=== PATIENT | male | born 1950 | race Caucasian/White ===

== ENCOUNTER → 2017-08-19 | Outpatient (CLI) | payer BC, MEDICARE ==
[2017-08-19 09:55] LABS: Cholesterol 140 mg/dL (<200); HDL Cholesterol 46 mg/dL (40-60)
== END | disposition home or self-care (01) ==
LOC: LABWHC1 08:20
PROVIDERS: ATTEND Family Medicine
DX: R05 Cough (principal); E78.00 Pure hypercholesterolemia, unspecified
CPT/HCPCS: 36415; 80061

== ENCOUNTER → 2017-08-19 | Outpatient (CLI) | payer BC, MEDICARE ==
[2017-08-19 08:40] LABS: EKG EKG PERFORMED
[2017-08-19 09:43] LABS: CH 30.5; CHCM 31.8; HCT 47.4 % (39.0-53.0); HDW 2.35; HGB 15.2 gm/dL (13.0-17.5); MCH 30.9 pg (25.0-35.0); MCV 96.4 fL (80.0-100.0); Mean Platelet Volume 6.9; RBC 4.92 m/uL (4.30-5.90); RDW 13.5 % (11.5-15.5); WBC 5.9 k/uL (3.8-10.6)
[2017-08-19 09:45] LABS: INR 1.1 (<1.2); Partial Thromboplastin Time 29.1 sec (22.0-30.0); Prothrombin Time 10.9 sec (9.0-12.0)
[2017-08-19 09:48] LABS: Appearance,Urine Clear (Clear); Bilirubin,Urine Negative (Negative); Glucose,Urine (UA) Negative (Negative); Ketones,Urine Negative (Negative); Leukocyte Esterase,Urine Negative (Negative); Nitrite,Urine Negative (Negative); PH, Urine 5.5 (5.0-8.0); Protein,Urine Negative (Negative); Specific Gravity,Urine 1.019 (1.001-1.035); UA Billing (MACRO vs. MICRO) CHEM; Urobilinogen,Urine <2.0 mg/dL (<2.0)
[2017-08-19 10:20] LABS: ALT 35 U/L (21-72); AST 26 U/L (17-59); Alkaline Phosphatase 62 U/L (38-126); Anion Gap 12 mmol/L; Blood Urea Nitrogen 17 mg/dL (9-20); Calcium 9.2 mg/dL (8.4-10.2); Carbon Dioxide 23 mmol/L (22-30); Chloride 107 mmol/L (98-107); Glucose 87 mg/dL (74-99); Non-African American GFR(MDRD) >60 (>60 ml/min/1.73 sqM); Potassium 4.4 mmol/L (3.5-5.1); Sodium 142 mmol/L (137-145); Total Bilirubin 0.5 mg/dL (0.2-1.3); Total Protein 7.4 g/dL (6.3-8.2)
== END | disposition home or self-care (01) ==
LOC: LABPAT 08:16
PROVIDERS: ATTEND Orthopaedic Surgery
DX: Z01.810 Encounter for preprocedural cardiovascular examination (principal); Z01.812 Encounter for preprocedural laboratory examination; M16.12 Unilateral primary osteoarthritis, left hip
CPT/HCPCS: 80053; 81003; 85027; 85610; 85730; 87070; 93005

== ENCOUNTER 2017-08-29 06:44 | Inpatient (IN) | payer BC, MEDICARE ==
[2017-08-22 14:13] VITALS: BMI 23.8
[~2017-08-29 06:44] MED LIST: ACETAMINOPHEN TAB 500 MG TAB PO ONE; DEXAMETHASONE SOD PHOSPHATE 10 MG/ML 1 ML VIAL IV ONE; MELOXICAM 7.5 MG TAB PO ONE; MIDAZOLAM 2 MG/2 ML VIAL IV PRN; SCOPOLAMINE 1.5MG/72HR PATCH TRANSDERM ONE; TRANEXAMIC ACID 1,000 MG in SODIUM CHLORIDE 0.9% 100 ML IVPB ONE; VANCOMYCIN 1,250 MG in SODIUM CHLORIDE 0.9% 250 ML IVPB ONE; ceFAZolin 2 GM in SODIUM CHLORIDE 0.9% 100 ML IVPB ONE
[2017-08-29] MEDS ORDERED: LACTATED RINGERS 1,000 ML IV ONE ×3 (07:07→11:12)
[2017-08-29] MEDS ORDERED: LIDOCAINE 1% 20 ML VIAL (10MG/ML) FOR IV START INTRADERMA ONE (07:08)
[2017-08-29] MEDS: ONDANSETRON 4 MG/2 ML VIAL IVP ONE ×2 (07:45→12:24)
[2017-08-29 07:54] LABS: Basophils % (A) 1 %; CH 30.8; CHCM 32.5; Eosinophils # (A) 0.1 k/uL (0-0.7); Eosinophils % (A) 2 %; HCT 45.1 % (39.0-53.0); HDW 2.34; HGB 14.9 gm/dL (13.0-17.5); Luc # (Auto) 0.16; Luc % (Auto) 3; Lymphocytes # (A) 2.5 k/uL (1.0-4.8); Lymphocytes % (A) 43 %; MCH 31.3 pg (25.0-35.0); MCHC 32.9 g/dL (31.0-37.0); MCV 95.2 fL (80.0-100.0); Mean Platelet Volume 6.3; Monocytes # (A) 0.4 k/uL (0-1.0); Monocytes % (A) 6 %; Neutrophils # (A) 2.8 k/uL (1.3-7.7); Neutrophils % (A) 46 %; RBC 4.74 m/uL (4.30-5.90); RDW 13.5 % (11.5-15.5); WBC (Perox) 5.94
[2017-08-29 08:01] LABS: Anion Gap 11 mmol/L; Blood Urea Nitrogen 13 mg/dL (9-20); Calcium 9.3 mg/dL (8.4-10.2); Carbon Dioxide 24 mmol/L (22-30); Chloride 106 mmol/L (98-107); Glucose 96 mg/dL (74-99); Non-African American GFR(MDRD) >60 (>60 ml/min/1.73 sqM); Potassium 4.2 mmol/L (3.5-5.1); Sodium 141 mmol/L (137-145)
[2017-08-29] MEDS ORDERED: HYDROmorphone 0.5 MG/0.5 ML SYRINGE IVP PRN ×3 (09:30)
[2017-08-29] MEDS ORDERED: hydrOXYzine PAMOATE 25 MG CAP PO PRN (09:30)
[2017-08-29] MEDS ORDERED: HYDROcodone/APAP 7.5-325MG 1 EACH TAB PO PRN (09:30)
[2017-08-29] MEDS ORDERED: NALOXONE 0.4 MG/ML 1 ML VIAL IV PRN (09:30)
[2017-08-29] MEDS ORDERED: MAGNESIUM HYDROXIDE 2,400 MG/10 ML CUP PO PRN (09:30)
[2017-08-29] MEDS ORDERED: DIAZEPAM 5 MG TAB PO PRN (09:30)
[2017-08-29] MEDS ORDERED: ONDANSETRON 4 MG/2 ML VIAL IVP PRN (09:30)
[2017-08-29] MEDS ORDERED: TRANEXAMIC ACID 1,000 MG/10 ML VIAL ONE (09:56)
[2017-08-29] MEDS ORDERED: fentaNYL (PF) 50 MCG/ML 2 ML AMP ONE (09:56)
[2017-08-29] MEDS ORDERED: MIDAZOLAM 2 MG/2 ML VIAL ONE (09:56)
[2017-08-29] MEDS ORDERED: SODIUM CHLORIDE 0.9% 100 ML BAG ONE (09:56)
[2017-08-29] MEDS ORDERED: PROPOFOL 10 MG/ML 20 ML VIAL IV ONE (09:56)
[2017-08-29] MEDS ORDERED: ceFAZolin 3,000 MG in SODIUM CHLORIDE 0.9% IRRIGATIO 3,000 ML IRRIGATION ONE (10:00)
[2017-08-29] MEDS: ROPIVACAINE 246.25 MG, EPINEPHrine 0.5 MG, KETOROLAC 30 MG, cloNIDine HCL/PF 80 MCG, WA... MISCELLANE ONE ×10 (10:27→11:30)
--- NOTE | 2017-08-29 11:41 | P.OP ---
Date of Procedure: 08/29/17 Preoperative Diagnosis: Severe osteoarthritis left hip Postoperative Diagnosis: Severe osteoarthritis left hip Procedure(s) Performed: Left total hip arthroplasty with a direct anterior approach Implants: Ibarra and nephew Polarstem size 6 lateral Ibarra & Nephew R3, 3 hole acetabular shell, 54 mm Ibarra & Nephew reflection 6.5 mm cancellus screw, 20 mm, 25 mm Ibarra & Nephew R3, XLPE 20 acetabular liner Ibarra & Nephew Oxinium femoral head 36 m, +8 All components were press-fit. The articulation is ceramic on polyethylene. Anesthesia: spinal Surgeon: Jermaine Polanco Industrial Nurse #1: Janice Alvarado Estimated Blood Loss (ml): 600 (263 mL returned with Cell Saver) Pathology: other (Femoral head) Condition: stable Disposition: PACU Indications for Procedure: After failure of conservative treatment we discussed the surgical and nonsurgical treatment options at length. Patient wishes to proceed with a total hip arthroplasty with a direct anterior approach. Complications specific to this procedure were discussed at length, including but not limited to infection, leg length discrepancy, dislocation, and nerve injury. Patient is aware of all these complications and informed consent was obtained Operative Findings: The operative findings are consistent with severe osteoarthritis of the left hip Description of Procedure: Patient was seen and evaluated in the preoperative area, consent was reviewed, and the surgical site was marked with a skin marker. Patient was then brought to the operating room and given prophylactic antibiotics intravenously. 1 g of Tranexamic acid was also given. A spinal anesthetic was administered by the anesthesia department. The patient was then placed on the [place] table with the bony prominences well-padded. The hip area was then prepped and draped in usual sterile fashion. A universal timeout was then performed, which confirmed the patient's name, surgical site, ALLERGIES, and procedure being performed. Next the incision site was located at 1 cm distal and 1 cm lateral to the anterior superior iliac spine. The skin and subcutaneous tissues were sharply incised. Incision was carefully dissected down to the fascia overlying the tensor fascia carol muscle. This fascia was then incised in line with the incision. Next, using blunt finger dissection, the tensor fascia carol muscle was dissected off its investing fascia. The muscle was then carefully retracted laterally with a cobra retractor over the lateral neck of the femur. Next, the circumflex vessels were identified and cauterized using the AquaMantis device. The anterior hip capsule was then exposed. The capsule was then opened and an inverted T fashion. Cobra retractors were then placed intracapsularly. The proximal femur was then visualized. The femoral neck was then osteotomized appropriate level above the lesser trochanter. Small amount of traction was placed with the [place] table. A small wedge of bone was then removed from the remaining femoral head. Next, using a corkscrew femoral head was easily removed from the acetabulum. On gross visual inspection, the femoral head had complete loss of articular cartilage in multiple periarticular osteophytes. Attention was then turned to the acetabulum. the acetabulum was exposed and any remaining labrum was excised. Sequential reaming of the acetabulum was performed using fluoroscopic guidance. When the appropriate size was reached, a trial was then placed. The position and fit of the trial was checked with fluoroscopy. The trial was then removed. Then, using fluoroscopic guidance, the final implant was impacted at 20 of anteversion and 40 of abduction, and fully seated in the acetabulum. 2 screws were then placed in the acetabulum. Again fluoroscopy was used to check position of the screws. Next, the liner was then impacted, with a 20 elevated liner located in the anterior superior quadrant. Component locking was confirmed. Attention was then directed to the femur. With the aid of the [place] table, the femur was externally rotated to approximately 130, extended, and abducted under the opposite leg. A side hook was then placed under the proximal femur, and the side hook elevator was used to elevate the proximal femur. Retractors were then placed. A capsular release was performed, as well as a release of the conjoined tendon, which afforded excellent visualization of the proximal femur. Next, a box osteotome was used to lateralize the proximal femur. A harness racing handicapper was then used to locate the femoral canal. Sequential broaching was then performed with appropriate size which afforded excellent fixation in the proximal femur. A trial was then placed with appropriate head and neck, and the hip was gently reduced with the aid of the [place] table. Fluoroscopy was then used to check position of the components, as well as to ensure equal leg lengths. The hip was then gently dislocated and the trials were then removed. Final implants were then impacted and the hip was again reduced. Final fluoroscopic x-rays confirmed that the components were in anatomic position, as well as equal leg lengths. The hip was also taken through range of motion, and found to be stable. The hip was then copiously irrigated with antibiotic solution with pulsatile lavage. The hip was then irrigated with Irrisept solution. The soft tissues were then injected with a ropivacaine solution, which consisted of 246.25 mg of ropivacaine, 0.5 mg of epinephrine, 30 mg of Toradol, 80 g of clonidine, and 48.45 mL of sterile water, for a total of 100 mL of fluid injected. A second dose of 1 g of Tranexamic acid was also given. the fascia was then closed with 2-0 strata fix suture. The subcutaneous tissue was closed with 3-0 Vicryl. The subcuticular tissue was closed with 3-0 strata fix suture. The skin was then closed with Dermabond tape. The patient was then transferred to the recovery room in stable condition. The respiratory assistant KIMBERLY Anderson was required due to the complexity of surgery, and the need for skilled assistant professor in family studies for positioning, draping, exposure, retraction, and closure of the wound.
[2017-08-29 12:12] VITALS: RESP 16
[2017-08-29] MEDS: HYDROmorphone 0.5 MG/0.5 ML SYRINGE IVP PRN ×4 (12:18→12:41)
[2017-08-29] MEDS ORDERED: KETOROLAC 30 MG/ML 1 ML VIAL IVP ONE (12:24)
[2017-08-29] MEDS: MEPERIDINE 50 MG/ML SYRINGE IVP ONE ×2 (12:50→12:52)
--- NOTE | 2017-08-29 12:56 | FL ---
EXAMINATION TYPE: FL guidance operating room, XR Hip Limited LT DATE OF EXAM: 08/29/2017 CLINICAL HISTORY: Left hip replacement surgery. TECHNIQUE: Fluoroscopy. Limited intraoperative views left hip. COMPARISON: None. FINDINGS: Fluoroscopic guidance was provided during total left hip replacement procedure performed kiel Polanco. A total of 56 seconds of fluoroscopic time was utilized during the procedure and 2 s pot intraoperative images are acquired. Images acquired show metallic hardware from total left hip arthroplasty and appears satisfactory in p osition on single frontal projection. IMPRESSION: As Above.
--- NOTE | 2017-08-29 13:01 | XR ---
Please see fluoroscopy report [id number] for complete details.
[2017-08-29] MEDS: LACTATED RINGERS 1,000 ML IV SCH (13:05)
[2017-08-29] MEDS: HYDROcodone/APAP 7.5-325MG 1 EACH TAB PO PRN ×2 (13:51→19:47)
[2017-08-29] MEDS: SODIUM CHLORIDE 0.9% 1,000 ML IV SCH (14:57)
[2017-08-29] MEDS: ceFAZolin 2 GM in SODIUM CHLORIDE 0.9% 100 ML IVPB SCH (17:36)
[2017-08-29] MEDS: DIAZEPAM 5 MG TAB PO PRN (17:40)
[2017-08-29] MEDS ORDERED: NICOTINE 21MG/24HR PATCH TRANSDERM SCH (20:00)
[2017-08-29] MEDS: ASPIRIN 325 MG TAB PO SCH (20:21)
[2017-08-29] MEDS: oxyCODONE ER 10 MG TAB.ER.12H PO SCH (20:21)
[2017-08-29] MEDS: IPRATROPIUM-ALBUTEROL 3 ML NEB INHALATION SCH (20:59)
[2017-08-29] MEDS ORDERED: SENNOSIDES-DOCUSATE SODIUM 1 EACH TAB PO SCH (21:00)
[2017-08-30] MEDS: ceFAZolin 2 GM in SODIUM CHLORIDE 0.9% 100 ML IVPB SCH (01:23)
[2017-08-30] MEDS: HYDROcodone/APAP 7.5-325MG 1 EACH TAB PO PRN ×3 (01:23→12:44)
[2017-08-30] MEDS: DIAZEPAM 5 MG TAB PO PRN ×2 (04:39→11:46)
[2017-08-30] MEDS: SODIUM CHLORIDE 0.9% 1,000 ML IV SCH (05:41)
[2017-08-30] MEDS: LACTATED RINGERS 1,000 ML IV SCH (05:41)
[2017-08-30] MEDS: IPRATROPIUM-ALBUTEROL 3 ML NEB INHALATION SCH (07:21)
[2017-08-30 07:26] LABS: Basophils % (A) 0 %; CH 30.5; CHCM 32.1; Eosinophils % (A) 0 %; HCT 36.7 % (39.0-53.0); HDW 2.36; Luc % (Auto) 2; Lymphocytes % (A) 16 %; MCH 30.8 pg (25.0-35.0); MCHC 32.3 g/dL (31.0-37.0); MCV 95.3 fL (80.0-100.0); Mean Platelet Volume 6.7; Monocytes # (A) 0.7 k/uL (0-1.0); Monocytes % (A) 5 %; Neutrophils # (A) 9.5 k/uL (1.3-7.7); Neutrophils % (A) 76 %; RBC 3.85 m/uL (4.30-5.90); RDW 13.3 % (11.5-15.5); WBC 12.4 k/uL (3.8-10.6); WBC (Perox) 13.27
--- NOTE | 2017-08-30 07:33 | CONS ---
CONSULTATION DATE OF CONSULTATION: 08/29/17 REASON FOR CONSULTATION: Medical management requested by Dr. Polanco. CONSULTATION: This is a pleasant 66-year-old patient of Dr. Estes who has undergone a left total hip arthroplasty. Sitting up in a chair. Some pain is present. Patient also got chronic low back pain, stable though from disc disease and also got COPD from being a smoker, smokes a pack a day. Patient did tolerate some diet. No cardiac history. REVIEW OF SYSTEMS: CONSTITUTIONAL: None. HEENT: None. RESPIRATORY: Occasional wheezing. CARDIOVASCULAR: None. GASTROINTESTINAL: None. GENITOURINARY: None. MUSCULOSKELETAL: Pain as above. DERMATOLOGICAL: None. HEMATOLOGIC: None. LYMPHATICS: None. PSYCHIATRY: None. NEUROLOGICAL: None. PAST HISTORY: Asthma, back pain from disc disease, arthritis in the left hip. PAST SURGICAL HISTORY: Appendectomy and back surgery. SOCIAL HISTORY: Smoked a pack a day for 50 years. Does not drink alcohol. 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 FAMILY HISTORY: Reviewed, noncontributory to presentation. HOME MEDICATIONS: 1. Percocet 10 one tablet q.6 p.r.n. 2. Ventolin 2 puffs q.6 p.r.n. 3. Another inhaler, name unknown. ALLERGIES: None. PHYSICAL EXAMINATION: On examination, temperature 97.8 pulse 64, respirations 16, blood pressure 121/78, pulse ox 97% on room air. GENERAL APPEARANCE: Sitting up, not in distress. EYES: Pupils equal, conjunctivae normal. HEENT: Oral cavity normal. NECK: JVD not raised. Mass not palpable. RESPIRATORY: Effort normal. LUNGS: Decreased breath sounds. CARDIOVASCULAR: First and second sounds normal. No edema. ABDOMEN: Soft, nontender. Liver and spleen not palpable. LYMPHATIC: No lymph node palpable in neck or axillae. PSYCHIATRY: Alert x3 and oriented x3. Mood and affect normal. MUSCULOSKELETAL: Evidence of osteoarthritis, especially in the hands and dressing of the left hip. INVESTIGATIONS: White count 6, hemoglobin 14.9, potassium 4.2, BUN and creatinine are normal. ASSESSMENT: 1. Left total hip arthroplasty. 2. Chronic obstructive pulmonary disease in a current smoker. 3. Chronic nicotine dependence, patient active cigarette smoker. PLAN: Patient will be put on DuoNeb 3 times a day, nicotine patch. Advised against smoking. Pain medicines per primary team. Patient also been put on aspirin 325 twice a day for DVT prophylaxis. Care was discussed with the patient. Questions were answered. Thank you, Dr. Polanco. RYDER / JESSICAN: [id number] /
[2017-08-30 07:53] LABS: HGB 11.9 gm/dL (13.0-17.5)
[2017-08-30 07:55] VITALS: BP 120/74; PULSE 64; TEMP 98.1
[2017-08-30] MEDS: oxyCODONE ER 10 MG TAB.ER.12H PO SCH (08:32)
[2017-08-30] MEDS: ASPIRIN 325 MG TAB PO SCH (08:32)
[2017-08-30] MEDS ORDERED: MELOXICAM 7.5 MG TAB PO SCH (09:00)
--- NOTE | 2017-08-30 09:19 | P.DS ---
Providers Date of admission: 08/29/17 06:44 Expected date of discharge: 08/30/17 Attending physician: Jermaine Polanco Consults: 08/29/17 09:30 Consult Physician Routine Consulting Provider: Chang Rodriguez Consult Reason/Comments: medical management Do you want consulting provider notified?: Yes Primary care physician: [facility] Course: This is a 66-year-old male with known history of degenerative arthritis of the left hip. The patient presents for evaluation. After discussion and consideration patient elects to proceed with total hip arthroplasty. The patient is seen preoperatively by Dr. Polanco and cleared for surgery. Patient is admitted to [facility] on 08/29/2017 for total hip arthroplasty. The procedures performed without complication or sequelae. The patient is doing well postoperatively. Labs and vital signs are stable on day of discharge. On day of discharge patient's hip incision is healing well. There is minimal erythema. There is no drainage noted at this time. There is minimal soft tissue swelling to the hip and thigh. Patient has full foot and ankle motion without difficulty or pain. Neurovascular status to the left lower extremity is intact. Patient is discharged home in good condition.Please see med rec for accurate list of home medications. Plan - Discharge Summary New Discharge Prescriptions: New Aspirin 325 mg PO BID #60 tab HYDROcodone/APAP 7.5-325MG [[place] 7.5-325] 1 - 2 tab PO Q4-6H PRN #90 tab PRN Reason: Pain Sennosides-Docusate Sodium [Senokot-S] 1 tab PO BID #60 tablet No Action oxyCODONE-APAP 10-325MG [Percocet 10-325 mg] 1 tab PO Q6HR PRN PRN Reason: Pain HYDROcodone/APAP 10-325MG [[place] 10-325] 1 tab PO Q4HR PRN PRN Reason: Breakthrough Pain Inhaler 2 puff INHALATION Q6H PRN PRN Reason: Shortness Of Breath Albuterol Inhaler [Ventolin Hfa Inhaler] 2 puff INHALATION RT-Q6H PRN PRN Reason: Shortness Of Breath Discharge Medication List HYDROcodone/APAP 10-325MG [[place] 10-325] 1 tab PO Q4HR PRN 08/22/17 [History] Inhaler 2 puff INHALATION Q6H PRN 08/22/17 [History] oxyCODONE-APAP 10-325MG [Percocet 10-325 mg] 1 tab PO Q6HR PRN 08/22/17 [History ] Albuterol Inhaler [Ventolin Hfa Inhaler] 2 puff INHALATION RT-Q6H PRN 08/29/17 [ History] Aspirin 325 mg PO BID #60 tab 08/30/17 [Rx] HYDROcodone/APAP 7.5-325MG [[place] 7.5-325] 1 - 2 tab PO Q4-6H PRN #90 tab [Rx] Sennosides-Docusate Sodium [Senokot-S] 1 tab PO BID #60 tablet 08/30/17 [Rx] Follow up Appointment(s)/Referral(s): Janice Alvarado PAC [PHYSICIAN MUSEUM DIRECTOR] - 2 Weeks Activity/Diet/Wound Care/Special Instructions: Weightbearing as tolerated with walker May shower after 2 days if no drainage from the incision Follow-up with [facility] in 2 weeks with any questions or concerns Discharge Disposition: HOME WITH HOME HEALTH SERVICES
--- NOTE | 2017-08-30 17:39 | P.PN ---
Progress Note - Text DATE OF SERVICE: 08/30/2017 PRESENTING COMPLAINT: Osteoarthritis of the left hip HISTORY OF PRESENT ILLNESS: 66-year-old male Status post left total hip arthroplasty INTERVAL HISTORY: 08/30/2017: Sitting up in a chair complains of some discomfort but not too bad. Tolerating his diet, agreeable to work with physical therapy, last BM prior to admission. REVIEW OF SYSTEMS: Done for constitutional ,cardiovascular, GI, pulmonary with relevant findings as above. CURRENT MEDICATIONS [place], DuoNeb, Valium, Vistaril, Mobic, nicotine patch, OxyContin. PHYSICAL EXAM VITAL SIGNS: Temperature 98.1, pulse 64, respirations 16, blood pressure 120/74, oxygen saturation 97% on room air. GENERAL APPEARANC sitting up in a chair, not in distress. EYES: Pupils equal. Conjunctiva normal. NECK: JVD not raised. Mass not palpable. RESPIRATORY: Respiratory effort normal. Lungs clear to auscultation. CARDIOVASCULAR: First and second sounds normal. No edema. ABDOMEN: Soft. Liver and spleen not palpable. No tenderness. No mass palpable. PSYCHIATRY: Alert and oriented x3. Mood and affect normal. MUSCULOSKELETAL: Evidence of osteoarthritis especially hands and the left hip, dressing in place over surgical site. INVESTIGATIONS: White blood cell count 12.4, hemoglobin 11.9, ASSESSMENT: -Left total hip arthroplasty. -Leukocytosis, likely reactive to surgery. -Chronic obstructive disease in a current smoker. -Chronic nicotine dependence, patient active cigarette smoker. PLAN: Continue current medication and treatment plan, patient stable for discharge from a medical standpoint and is expecting to go home today per orthopedics. PHYSICAL TRAINER statement: Patient was seen and examined by nurse practitioner Margie Alvarez and all elements of the case discussed with attending Dr. Rodriguez
--- NOTE | 2017-08-30 18:27 | PN ---
PROGRESS NOTE DATE OF SERVICE: 08/30/2017 ATTENDING NOTE: This patient seen and examined by me. I discussed with my nurse practitioner, Ms. Alvarez. The patient doing better. Using a walker to get about. Pain is controlled. No nausea, vomiting, comfortable. EXAMINATION: Blood pressure 120/74, afebrile. Lungs slightly decreased breath sounds. CARDIOVASCULAR: First and second sounds normal. Hemoglobin 11.9, today. ASSESSMENT: 1. Left total hip arthroplasty. 2. Chronic obstructive pulmonary disease in a current smoker. 3. Acute blood-loss anemia as expected from surgery. PLAN: Care was discussed with the patient. If discharged should follow with family doctor. MMODL / IJN: [id number] /
== END 2017-08-30 13:39 | disposition home health service (06) | DRG 470 ==
LOC: 2ORMAIN 06:44 → 3SUR 12:14
PROVIDERS: ADMIT Orthopaedic Surgery; ATTEND Orthopaedic Surgery
PROC: 0SRB06A Replacement of Left Hip Joint with Oxidized Zirconium on Polyethylene Synthetic Substitute, Uncemented, Open Approach (ICD-10-PCS; principal; 2017-08-29 09:45)
DX: M16.12 Unilateral primary osteoarthritis, left hip (principal); J44.9 Chronic obstructive pulmonary disease, unspecified; D62 Acute posthemorrhagic anemia; D72.829 Elevated white blood cell count, unspecified; G89.29 Other chronic pain; M47.9 Spondylosis, unspecified; F17.200 Nicotine dependence, unspecified, uncomplicated
CPT/HCPCS: 73501; 80048; 85025; 86850; 86891; 86900; 86901; 88300; 94640

== ENCOUNTER → 2022-03-27 | Outpatient (CLI) | payer BC, MEDICARE ==
[2022-03-27 11:32] LABS: Partial Thromboplastin Time 27.6 sec (22.0-30.0); Prothrombin Time 11.2 sec (9.0-12.0)
[2022-03-27 16:35] LABS: HCT 40.9 % (39.6-50.0); HGB 13.2 g/dL (13.0-17.0); MCH 29.9 pg (27.0-32.0); MCHC 32.3 g/dL (32.0-37.0); MCV 92.7 fL (80.0-97.0); Mean Platelet Volume 9.8 fL (9.5-12.2); NRBC Per 100 WBC 0 /100 WBCS (0.0-0.0); Platelet Count 202 X 10*3/uL (140-440); RBC 4.41 X 10*6/uL (4.40-5.60); RDW 12.7 % (11.5-14.5); WBC 8.69 X 10*3/uL (4.50-10.00)
[2022-03-27 16:54] LABS: Albumin 4.4 g/dL (3.8-4.9); Albumin/Globulin Ratio 1.59 (1.60-3.17); Anion Gap 8.5 mmol/L (10.00-18.00); BUN/Creat Ratio 25.37 Ratio (12.00-20.00); Blood Urea Nitrogen 15.3 mg/dL (9.0-27.0); Calcium 9.4 mg/dL (8.7-10.3); Carbon Dioxide 28.4 mmol/L (20.0-27.5); Globulin 2.7 g/dL (1.6-3.3); Potassium 3.5 mmol/L (3.5-5.5); Total Bilirubin 0.4 mg/dL (0.30-1.20); Total Protein 7.1 g/dL (6.2-8.2)
[2022-03-27 17:51] LABS: Appearance,Urine Clear (Clear); Color,Urine Dark Yellow (Yellow)
[2022-03-27 17:52] LABS: Bilirubin,Urine Negative (Negative); Blood,Urine Negative (Negative); Ketones,Urine Negative (Negative); Nitrite,Urine Negative (Negative); PH, Urine 5.5 (5.0-8.0); Specific Gravity,Urine 1.022 (1.001-1.030); Urobilinogen,Urine 0.2 (0.2,1.0)
== END | disposition home or self-care (01) ==
LOC: LABWHC1 10:35
PROVIDERS: ATTEND Orthopaedic Surgery
DX: Z01.812 Encounter for preprocedural laboratory examination (principal)
CPT/HCPCS: 36415; 80053; 81003; 85027; 85610; 85730; 87070

== ENCOUNTER 2022-04-05 08:10 | Observation (INO) | payer BC, MEDICARE ==
[2022-04-02 08:19] VITALS: BMI 22.4
[~2022-04-05 08:10] MED LIST changes: -ACETAMINOPHEN TAB 500 MG TAB PO ONE; +ACETAMINOPHEN TAB 500 MG TAB PO PRN; -DEXAMETHASONE SOD PHOSPHATE 10 MG/ML 1 ML VIAL IV ONE; +DEXAMETHASONE SOD PHOSPHATE 4 MG/ML 1 ML VIAL IV ONE; +GABAPENTIN 300 MG CAP PO PRN; -MELOXICAM 7.5 MG TAB PO ONE; +MELOXICAM 7.5 MG TAB PO PRN; -MIDAZOLAM 2 MG/2 ML VIAL IV PRN; +ONDANSETRON 4 MG/2 ML VIAL IVP ONE; -SCOPOLAMINE 1.5MG/72HR PATCH TRANSDERM ONE; -TRANEXAMIC ACID 1,000 MG in SODIUM CHLORIDE 0.9% 100 ML IVPB ONE; +TRANEXAMIC ACID IN NACL,ISO-OS 1,000 MG in SALINE 1 100ML.BAG IVPB PRN; -VANCOMYCIN 1,250 MG in SODIUM CHLORIDE 0.9% 250 ML IVPB ONE; -ceFAZolin 2 GM in SODIUM CHLORIDE 0.9% 100 ML IVPB ONE
[2022-04-05] MEDS ORDERED: NALOXONE 0.4 MG/ML 1 ML VIAL IV PRN (08:15)
[2022-04-05] MEDS ORDERED: ONDANSETRON 4 MG/2 ML VIAL IVP PRN (08:15)
[2022-04-05] MEDS ORDERED: HYDROmorphone 0.5 MG/0.5 ML SYRINGE IVP PRN ×3 (08:15)
[2022-04-05] MEDS ORDERED: MAGNESIUM HYDROXIDE 2,400 MG/10 ML CUP PO PRN (08:15)
[2022-04-05] MEDS ORDERED: HYDROcodone/APAP 10-325MG 1 EACH TAB PO PRN (08:19)
[2022-04-05] MEDS: LACTATED RINGERS 1,000 ML IV SCH (08:55)
[2022-04-05] MEDS ORDERED: TRANEXAMIC ACID IN NACL,ISO-OS 1,000 MG/100 ML BAG ONE (09:12)
[2022-04-05] MEDS ORDERED: MIDAZOLAM 2 MG/2 ML VIAL ONE (09:12)
[2022-04-05] MEDS ORDERED: PROPOFOL 10 MG/ML 20 ML VIAL IV ONE (09:12)
[2022-04-05] MEDS ORDERED: ceFAZolin 1,000 MG in SODIUM CHLORIDE 0.9% 1,000 ML IRRIGATION ONE (09:17)
[2022-04-05] MEDS ORDERED: ROPIVACAINE 5 MG/ML 30 ML VIAL MISCELLANE ONE ×2 (09:18→10:29)
--- NOTE | 2022-04-05 10:35 | P.OP ---
Date of Procedure: 04/05/22 Preoperative Diagnosis: Severe osteoarthritis right hip Postoperative Diagnosis: Severe osteoarthritis right hip Procedure(s) Performed: Right total hip arthroplasty with a direct anterior approach Implants: Ibarra & Nephew Polarstem standard size 6 Ibarra & Nephew R3, 3 hole hemispherical acetabular shell, 54 mm Ibarra & Nephew Reflection 6.5 mm cancellus screw, 20 mm 2 Ibarra & Nephew R3, XLPE 20 acetabular liner Ibarra & Nephew Oxinium femoral head 36 m, +4 All components were press-fit. The articulation is Oxinium on polyethylene. Anesthesia: spinal Surgeon: Jermaine Polanco Store Leader #1: Janice Alvarado Estimated Blood Loss (ml): 400 Pathology: other (Femoral head) Condition: stable Disposition: PACU Indications for Procedure: After failure of conservative treatment we discussed the surgical and nonsurgic al treatment options at length. Patient wishes to proceed with a total hip arthroplasty with a direct anterior approach. Complications specific to this procedure were discussed at length, including but not limited to infection, leg length discrepancy, dislocation, nerve injury, and fracture. Covid-19 was also discussed at length with the patient, and they are aware of the current policies and procedures. The patient was given the option of delaying surgery, but they elect to proceed knowing these risks. Patient is aware of all these complications and informed consent was obtained Operative Findings: The operative findings are consistent with severe osteoarthritis of the right hip Description of Procedure: Patient was seen and evaluated in the preoperative area and the consent was reviewed. The operative site was marked with a skin marker. The patient was then brought to the operating room and given preoperative antibiotics intravenously. 1 g of Tranexamic acid was also given intravenously. A spinal anesthetic was administered by the anesthesia department. The patient was then placed on the [place] table with the bony prominences well-padded. The hip area was then prepped with a ChloraPrep solution and draped in the usual sterile fashion. A universal timeout was then performed, which confirmed the patient's name, surgical site, ALLERGIES, and procedure being performed on the consent. Next the incision site was located at 1 cm distal and 2 cm lateral to the anterior superior iliac spine. The skin and subcutaneous tissues were sharply incised. Incision was carefully dissected down to the fascia overlying the tensor fascia carol muscle. This fascia was then incised in line with the incision. Care was taken to stay laterally in order to avoid injuring the lateral femoral cutaneous nerve. Next, using blunt finger dissection, the tensor fascia carol muscle was dissected off its investing fascia. The muscle was then carefully retracted laterally with a cobra retractor over the lateral neck of the femur. Next, the circumflex vessels were identified and cauterized using the AquaMantis device. The anterior hip capsule was then exposed. The capsule was then opened and an inverted T fashion. Cobra retractors were then placed intracapsularly. The retractors were maintained intracapsular throughout the procedure. The proximal femur was then visualized. Fluoroscopic x-rays were then taken in order to evaluate the preoperative leg lengths. A small amount of traction was placed on the leg. The femoral neck was then osteotomized at the appropriate level above the lesser trochanter. A small wedge of bone was then removed from the remaining femoral head. Next, using a corkscrew the femoral head was removed from the acetabulum. On gross visual inspection, the femoral head had complete loss of articular cartilage and multiple periarticular osteophytes. The femoral head was then measured. Attention was then turned to the acetabulum. The acetabulum was exposed and any remaining labrum was excised. Sequential reaming of the acetabulum was performed using fluoroscopic guidance until there was a good bed of bleeding cancellus bone. When the appropriate size was reached, a trial was then placed. The position and fit of the trial was checked with fluoroscopy. The trial was then removed. Then, using fluoroscopic guidance, the final implant was impacted at 20 of anteversion and 40 of abduction, and fully seated in the acetabulum. 2 screws were then placed in the acetabulum. Again fluoroscopy was used to check position of the screws. Next, the liner was then impacted, with a 20 elevated liner located in the anterior superior quadrant. Component locking was confirmed. Attention was then directed to the femur. With the aid of the [place] table, the femur was externally rotated to approximately 130, extended, and adducted under the opposite leg. A side hook was then placed under the proximal femur, and the side hook elevator was used to elevate the proximal femur while releasing the capsule. Retractors were then placed. A capsular release was performed, as well as a release of the conjoined tendon, which afforded excellent visualization of the proximal femur. Next, a box osteotome was used to lateralize the proximal femur. A hand woven carpet and rug mender was then used to locate the femoral canal. Sequential broaching was then performed with appropriate size which afforded excellent fixation in the proximal femur. A trial was then placed with appropriate head and neck, and the hip was gently reduced with the aid of the [place] table. Fluoroscopy was then used to check position of the components, as well as to ensure equal leg lengths. The hip was then gently di slocated and the trials were then removed. Final implants were then impacted and the hip was again reduced. Final fluoroscopic x-rays confirmed that the components were in anatomic position, as well as equal leg lengths. The hip was also taken through range of motion, and found to be stable. The hip was then copiously irrigated with antibiotic solution with pulsatile lavage. The hip was then irrigated with Irrisept solution. The soft tissues were then injected with a ropivacaine solution. A second dose of 1 g of Tranexamic acid was also given intravenously. The fascia was then closed with 2-0 strata fix suture. The subcutaneous tissue was closed with 3-0 Vicryl. The subcuticular tissue was closed with 3-0 strata fix suture. The skin was then closed with Exofin skin glue. After the glue and dried, and Optifoam silver impregnated dressing was applied. The patient was then transferred to the recovery room in stable condition. The psychologist research assistant KIMBERLY Anderson was required due to the complexity of surgery, and the need for skilled surgical services manager for positioning, draping, exposure, retraction, and closure of the wound.
--- NOTE | 2022-04-05 11:26 | FL ---
EXAMINATION TYPE: FL guidance operating room, XR Hip Limited RT DATE OF EXAM: 04/05/2022 CLINICAL HISTORY: Right hip pain and osteoarthritis. TECHNIQUE: Fluoroscopy. Limited intraoperative views right hip. COMPARISON: None. FINDINGS: Fluoroscopic guidance was provided during right hip replacement procedure performed by Dr. Polanco. A total of 30 seconds of fluoroscopic time was utilized during the procedure and 3 spot i mages was acquired. Intraoperative views show metallic hardware from total right hip arthroplasty satisfactory in positio n on frontal projection. IMPRESSION: As Above.
[2022-04-05] MEDS: HYDROmorphone 0.5 MG/0.5 ML SYRINGE IVP PRN ×3 (13:30→14:38)
[2022-04-05] MEDS: SODIUM CHLORIDE 0.9% 1,000 ML IV SCH (15:29)
[2022-04-05] MEDS: oxyCODONE-APAP 10-325MG 1 EACH TAB PO PRN ×2 (16:19→23:27)
[2022-04-05] MEDS ORDERED: SENNOSIDES-DOCUSATE SODIUM 1 EACH TAB PO SCH (21:00)
--- NOTE | 2022-04-05 21:16 | P.CONS ---
History of Present Illness - Reason for Consult Consult date: 04/05/22 Medical management Requesting physician: Jermaine Polanco - Chief Complaint Right hip surgery - History of Present Illness This is a pleasant 71-year-old patient of Dr. Erickson Estes. Chronic stable medical conditions include COPD, osteoporosis, nicotine dependence. Patient has undergone right total hip arthroplasty. Some pain at the operative site. No nausea vomiting. Did tolerate some supper. Breathing is stable. Patient is an active smoker. Review of systems: GEN.: Tired EYES: None HEENT: None NECK: None RESPIRATORY: Occasional short of breath CARDIOVASCULAR: None GASTROINTESTINAL: None GENITOURINARY: None MUSCULOSKELETAL: Joint pains LYMPHATICS: None HEMATOLOGICAL: None PSYCHIATRY: None NEUROLOGICAL: None Past medical history to include: COPD, nicotine dependence, osteoarthritis Social history: This is a . Smoking a pack a day for close to 55 years. No alcohol. Family history: Reviewed, noncontributory to presentation Physical examination: VITAL SIGNS: 98.3, 91, 18, 140/74, 94% room air GENERAL: BMI 22.2, laying but awake, not in distress. EYES: Pupils equal. Conjunctiva normal. HEENT: External appearance of nose and ears normal, oral cavity grossly normal. NECK: JVD not raised; masses not palpable. HEART: First and second heart sounds are normal; no edema. LUNGS: Respiratory rate normal; decreased breath sounds. ABDOMEN: Soft, nontender, liver spleen not palpable, no masses palpable. PSYCH: Alert and oriented x3; mood and affect normal. MUSCULOSKELETAL:No Clubbing/cyanosis;muscles-grossly intact. Evidence of OA. Dressing over the right hip. NEUROLOGICAL: Cranial nerves grossly intact; no facial asymmetry, power and sensation grossly intact. LYMPHATICS: No lymph nodes palpable in the axilla and neck INVESTIGATIONS, reviewed in the clinical context: Labs from 03/27/2022: White count 8.6 hemoglobin 13.2 platelets 202 sodium 140 potassium 3.5 BUN 15.3 creatinine 0.6 Assessment and plan: -Right total hip arthroplasty. Aspirin for DVT prophylaxis per Dr. Polanco. Pain control. -Primary osteoarthritis multiple joints bilaterally Tylenol when necessary -COPD in a current smoker Albuterol when necessary -Chronic nicotine dependence, cigarette smoker Nicotine patch 21 Aspirin for DVT prophylaxis. Nicotine patch. Resume home medications. Care was discussed with the patient. Questions answered. Thank you Dr. Polanco Past Medical History Past Medical History: Asthma, COPD, Osteoarthritis (OA) Additional Past Medical History / Comment(s): CHRONIC BACK PAIN History of Any Multi-Drug Resistant Organisms: None Reported Past Surgical History: Appendectomy, Back Surgery, Joint Replacement, Orthopedic Surgery Additional Past Surgical History / Comment(s): lt tot anterior hip Past Anesthesia/Blood Transfusion Reactions: No Reported Reaction Additional Past Anesthesia/Blood Transfusion Reaction / Comm: no hx blood transfusion Past Psychological History: No Psychological Hx Reported Smoking Status: Current every day smoker Past Alcohol Use History: None Reported Additional Past Alcohol Use History / Comment(s): 1PPD FROM AGE 16 Past Drug Use History: None Reported - Past Family History Mother Family Medical History: No Reported History Medications and Allergies Home Medications Medication Instructions Recorded Confirmed Type HYDROcodone/APAP 10-325MG [[place] 1 tab PO Q4HR PRN 08/22/17 04/05/22 History 10-325] oxyCODONE-APAP 10-325MG [Percocet 1 tab PO Q6HR PRN 08/22/17 04/05/22 History 10-325 mg] Albuterol Inhaler (Mhu) [Ventolin 2 puff INHALATION RT-Q6H PRN 08/29/17 04/05/22 History Hfa Inhaler] Aspirin 325 mg PO BID #60 tab 04/05/22 Rx Ondansetron Odt [Zofran Odt] 1 tab PO Q8HR PRN #10 tab 04/05/22 Rx Sennosides [Senokot] 2 tab PO DAILY PRN #60 tablet 04/05/22 Rx Allergies Allergy/AdvReac Type Severity Reaction Status Date / Time No Known Allergies Allergy Verified 04/02/22 08:10 Physical Exam Vitals: Vital Signs Temp Pulse Pulse Resp BP Pulse Ox 04/05/22 19:22 97.5 F L 79 16 124/71 93 L 04/05/22 15:43 98.3 F 81 18 144/74 94 L 04/05/22 15:26 84 16 149/66 96 04/05/22 14:30 82 16 150/87 96 04/05/22 13:45 83 18 155/89 04/05/22 13:15 84 16 159/93 97 04/05/22 12:45 75 16 137/85 97 04/05/22 12:15 72 16 148/85 99 04/05/22 11:45 70 16 139/76 99 04/05/22 11:30 72 18 154/83 99 04/05/22 11:15 74 16 141/81 99 04/05/22 11:00 78 16 129/69 98 04/05/22 10:49 97.3 F L 83 16 122/70 98 04/05/22 08:44 97.5 F L 77 16 159/89 93 L Intake and Output 04/05/22 04/05/22 04/05/22 06:59 14:59 22:59 Intake Total 1051 1870 Output Total 400 Balance 651 1870 Intake: IV 1051 600 Intake, IV Titration 170 Amount Sodium Chloride 0.9% 1, 120 000 ml @ 60 mls/hr IV . [id number] [facility] Rx#:[id number] ceFAZolin 2 gm In Sodium 50 Chloride 0.9% 50 ml @ 100 mls/hr IVPB Q8H [facility] Rx#: [id number] Oral 1100 Output: Estimated Blood Loss 400 Other: Voiding Method Toilet Urinal # Voids 2 Weight 78.5 kg 78.5 kg
[2022-04-05] MEDS: ASPIRIN 325 MG TAB PO SCH (21:29)
[2022-04-06 01:07] VITALS: RESP 18
[2022-04-06] MEDS: oxyCODONE-APAP 10-325MG 1 EACH TAB PO PRN (05:43)
[2022-04-06] MEDS: ASPIRIN 325 MG TAB PO SCH (08:23)
[2022-04-06] MEDS: SODIUM CHLORIDE 0.9% 1,000 ML IV SCH (08:24)
[2022-04-06] MEDS: LACTATED RINGERS 1,000 ML IV SCH (08:25)
[2022-04-06 08:44] VITALS: BP 131/79; PULSE 68; TEMP 97.9
--- NOTE | 2022-04-06 08:50 | P.DS ---
Providers Expected date of discharge: 04/06/22 Attending physician: Jermaine Polanco Consults: 04/05/22 08:15 Consult Physician Routine Consulting Provider: Chang Rodriguez Consult Reason/Comments: medical management Do you want consulting provider notified?: Yes Primary care physician: Erickson Quarles - Discharge Diagnosis(es) (1) Osteoarthritis of right hip Current Visit: Yes Status: Acute (2) S/P total hip arthroplasty Current Visit: Yes Status: Acute Hospital Course: This is a 71-year-old male with known history of degenerative arthritis of the right hip. The patient presented for evaluation as an outpatient. After discussion and consideration patient elects to proceed with total hip arthroplasty. The patient is seen preoperatively by Dr. Polanco and medically cleared for surgery by their primary care physician. Patient is admitted to [facility] on 04/05/2022 for total hip arthroplasty. The procedure is performed without complication or sequelae. The patient is doing well postoperatively. Labs and vital signs are stable on day of discharge. On day of discharge patient's hip incision is healing well. There is minimal erythema. There is no drainage noted at this time. There is minimal soft tissu e swelling to the hip and thigh. Patient has full foot and ankle motion without difficulty or pain. Calf is soft and nontender to palpation. Neurovascular status to the right lower extremity is intact. Patient is discharged home in good condition. Patient has a pain contract with another physician who will manage postoperative pain. Please see med rec for accurate list of home medications. Plan - Discharge Summary Discharge Rx Participant: No New Discharge Prescriptions: New Aspirin 325 mg PO BID #60 tab Ondansetron Odt [Zofran Odt] 1 tab PO Q8HR PRN #10 tab PRN Reason: Nausea Sennosides [Senokot] 2 tab PO DAILY PRN #60 tablet PRN Reason: Constipation No Action oxyCODONE-APAP 10-325MG [Percocet 10-325 mg] 1 tab PO Q6HR PRN PRN Reason: Pain HYDROcodone/APAP 10-325MG [[place] 10-325] 1 tab PO Q4HR PRN PRN Reason: Breakthrough Pain Albuterol Inhaler (Mhu) [Ventolin Hfa Inhaler] 2 puff INHALATION RT-Q6H PRN PRN Reason: Shortness Of Breath Discharge Medication List HYDROcodone/APAP 10-325MG [[place] 10-325] 1 tab PO Q4HR PRN 08/22/17 [History] oxyCODONE-APAP 10-325MG [Percocet 10-325 mg] 1 tab PO Q6HR PRN 08/22/17 [History] Albuterol Inhaler (Mhu) [Ventolin Hfa Inhaler] 2 puff INHALATION RT-Q6H PRN 08/29/17 [History] Aspirin 325 mg PO BID #60 tab 04/05/22 [Rx] Ondansetron Odt [Zofran Odt] 1 tab PO Q8HR PRN #10 tab 04/05/22 [Rx] Sennosides [Senokot] 2 tab PO DAILY PRN #60 tablet 04/05/22 [Rx] Follow up Appointment(s)/Referral(s): Jermaine Polanco DO [Doctor of Osteopathic Medicine] - 2 Weeks Activity/Diet/Wound Care/Special Instructions: Weightbearing as tolerated with walker. Leave dressing intact. Dressing may be removed by home care nurse or by patient in 7 days. Then change dressing twice daily until follow up. May shower with initial dressing intact and after removal. If dressing become saturated, please remove. Please take aspirin 325mg twice daily for 30 days to prevent blood clots. Recommend use of compression stockings daily until follow up to help prevent swelling and blood clots. May remove at night before sleeping. Please follow-up with [facility] in 2 weeks and call with any questions or concerns, . Discharge Disposition: HOME WITH HOME HEALTH SERVICES
[2022-04-06 09:34] LABS: Basophils # (A) 0.01 X 10*3/uL (0.00-0.10); Basophils % (A) 0.1 %; Eosinophils # (A) 0 X 10*3/uL (0.04-0.35); Eosinophils % (A) 0 %; HCT 36.1 % (39.6-50.0); HGB 11.8 g/dL (13.0-17.0); Immature Grans, Automated 0.5 %; Lymphocytes # (A) 2.24 X 10*3/uL (0.90-5.00); Lymphocytes % (A) 16.8 %; MCH 30.1 pg (27.0-32.0); MCHC 32.7 g/dL (32.0-37.0); MCV 92.1 fL (80.0-97.0); Mean Platelet Volume 9.4 fL (9.5-12.2); Monocytes # (A) 1.41 X 10*3/uL (0.20-1.00); Monocytes % (A) 10.6 %; NRBC Per 100 WBC 0 /100 WBCS (0.0-0.0); Platelet Count 200 X 10*3/uL (140-440); RBC 3.92 X 10*6/uL (4.40-5.60); WBC 13.33 X 10*3/uL (4.50-10.00)
--- NOTE | 2022-04-07 19:48 | P.PN ---
Progress Note - Text Progress Note Date: 04/06/22 - History of Present Illness This is a pleasant 71-year-old patient of Dr. Erickson Estes. Chronic stable medical conditions include COPD, osteoporosis, nicotine dependence. Patient has undergone right total hip arthroplasty. Some pain at the operative site. No nausea vomiting. Did tolerate some supper. Breathing is stable. Patient is an active smoker. April 07: Better. No nausea vomiting. Did ambulate. Pain control. Discussed with the patient. Current medications reviewed Past medical history to include: COPD, nicotine dependence, osteoarthritis Social history: This is a . Smoking a pack a day for close to 55 years. No alcohol. Family history: Reviewed, noncontributory to presentation Physical examination: VITAL SIGNS: 87.9, 68, 18, 131/79, 97% room air GENERAL: Sitting up, comfortable EYES: Pupils equal. Conjunctiva normal. HEENT: External appearance of nose and ears normal, oral cavity grossly normal. NECK: JVD not raised; masses not palpable. HEART: First and second heart sounds are normal; no edema. LUNGS: Respiratory rate normal; decreased breath sounds. ABDOMEN: Soft, nontender, liver spleen not palpable, no masses palpable. PSYCH: Alert and oriented x3; mood and affect normal. MUSCULOSKELETAL:No Clubbing/cyanosis;muscles-grossly intact. Evidence of OA. Dressing over the right hip. INVESTIGATIONS, reviewed in the clinical context: Hemoglobin 11.8 Labs from 03/27/2022: White count 8.6 hemoglobin 13.2 platelets 202 sodium 140 potassium 3.5 BUN 15.3 creatinine 0.6 Assessment and plan: -Right total hip arthroplasty. Aspirin for DVT prophylaxis per Dr. Polanco. Pain control. -Primary osteoarthritis multiple joints bilaterally Tylenol when necessary -COPD in a current smoker Albuterol when necessary -Chronic nicotine dependence, cigarette smoker Nicotine patch 21 -Acute postprocedure blood loss anemia expected from surgery Continue current medication treatment plan. Follow-up with PCP upon discharge. Discussed with patient. Thank you Dr. Polanco
== END 2022-04-06 12:49 | disposition home health service (06) ==
LOC: OR 08:10 → 4SSUR 15:23 → OR 04-06 07:17
PROVIDERS: ADMIT Orthopaedic Surgery; ATTEND Orthopaedic Surgery
DX: M16.11 Unilateral primary osteoarthritis, right hip (principal); M25.751 Osteophyte, right hip; J44.9 Chronic obstructive pulmonary disease, unspecified; M81.0 Age-related osteoporosis without current pathological fracture; R05.3 Chronic cough; J43.9 Emphysema, unspecified; E78.5 Hyperlipidemia, unspecified; M48.061 Spinal stenosis, lumbar region without neurogenic claudication; L40.9 Psoriasis, unspecified; F17.210 Nicotine dependence, cigarettes, uncomplicated; G89.4 Chronic pain syndrome; Z86.14 Personal history of Methicillin resistant Staphylococcus aureus infection; Z90.49 Acquired absence of other specified parts of digestive tract; Z98.890 Other specified postprocedural states; Z96.642 Presence of left artificial hip joint; Z83.3 Family history of diabetes mellitus; Z79.82 Long term (current) use of aspirin; J30.2 Other seasonal allergic rhinitis
CPT/HCPCS: 97161; 97535; 97165; 85025; 88300; 73501; 27130; G0378; C1776; J2250; J1100; J0690 ×3; J2405; J2795; J2704; J1170 ×2; 86850; 86900; 86901

== ENCOUNTER → 2024-12-11 | Outpatient (CLI) | payer MEDICARE | LOC: CPPFTMAIN 11:03 | PROVIDERS: ATTEND Internal Medicine Critical Care Medicine | DX: J44.9 Chronic obstructive pulmonary disease, unspecified (principal); F17.210 Nicotine dependence, cigarettes, uncomplicated | CPT/HCPCS: 94060; 94726; 94729 ==